=== PATIENT | male | born 1960 | race Caucasian/White ===

== ENCOUNTER → 2019-05-15 08:54 | Outpatient (CLI) | payer MEDICARE, SELFPAY ==
--- NOTE | 2019-05-15 10:25 | PM.TREADMILL ---
Cardiac Stress Test Report Referral & Results Date Patient Seen: 05/15/19 Time Patient Seen: 10:25 Requesting provider: Mojgan Yoon Indication: Dysrhythmia Rest ECG: Unremarkable Procedure Note: After both written and verbal informed consent patient had an IV started and was looked up to the treadmill monitoring system. Patient was exercised for 3 minutes according to standard [facility] protocol but only reached approximately 65% of his target heart rate. He was having increasing difficulty keeping up with the treadmill becoming increasingly fatigued etc. Therefore the [facility] protocol stress test was terminated and he was converted to a Lexiscan protocol. The treadmill was lowered to 1 mi an hour at 0 elevation and patient walked for 3 additional minutes. He received the Lexiscan material immediately followed by the Cardiolite tracer. There are no ST-T segment changes noted any point Blunted heart rate response as above likely secondary to ongoing beta-marianela therapy Occasional PAC identified including 3 and 4 beat runs of SVT Impression: Please see perfusion imaging report for details regarding possible ischemia Supraventricular dysrhythmia as above Please note: Actual ECG tracings can be found in the PACS system.
--- NOTE | 2019-05-19 11:42 | DI.NM.S_ITS ---
DATE OF SERVICE: 05/15/2019 PROCEDURE: Pharmacological perfusion study. INDICATIONS: Non-sustained ventricular tachycardia, premature ventricular contractions (PVCs), hypertension, persisted tobacco abuse, hyperlipidemia. RADIOPHARMACEUTICAL: 24.9 mCi technetium-99m Myoview IV was injected at stress and 24.9 mCi of technetium-99m Myoview IV was injected at rest. CARDIAC STRESS: The patient initially attempted exercise perfusion stress test, however, walked only for 3 minutes on treadmill and had only 65% of target heartrate; hence, got converted to Lexiscan. The patient received IV Lexiscan, as per standard protocol. He remained hemodynamically stable. Baseline EKG revealed sinus rhythm with almost QS complexes in V1 to V3. Stress EKG did not reveal any obvious inducible ischemic changes. There were 3 beats of nonsustained ventricular tachycardia. RAW DATA: There was increased subdiaphragmatic activity. GATED STUDY: Resting LV ejection fraction reported to be 42% and stress LV ejection fraction 58%. No significant wall motion abnormalities during stress. Resting end-diastolic volume 148 mL. TID ratio 0.99, which is within normal limits. Lung/heart ratio 0.46, which is abnormal. MYOCARDIAL PERFUSION: Stress supine, resting supine, and stress prone images were compared to each other. Stress supine images revealed cqokebbb-pj-gmumb- sized djmtzllv-la-lcwichnt decreased perfusion of inferior wall and inferior apex. Resting supine images revealed moderate-sized ujwkeeww-rv-wutyamph decreased perfusion of inferior wall and inferior apex, excluding distal inferior wall. On prone images, there was significant improvement. The patient remained to have minimally decreased perfusion of distal inferior wall. There is no obvious reversible ischemia. CONCLUSION: I will call this study likely a normal myocardial perfusion study with evidence of diaphragmatic tissue attention artifact which got much improved during prone images. The patient walked only 3 minutes for the treadmill, as per the report, and got only 65% of target heartrate; hence, converted to Lexiscan. Has 3 beats of nonsustained ventricular tachycardia which happened couple of times. No sustained ventricular tachycardia seen. Lung/heart ratio is abnormal. We will recommend to 2D Echo to make sure there is no diastolic dysfunction or significant valvular pathology. Clinical correlation is recommended. KennamillaDalton - ILSSA/giuliana/ts doc#: [id number]/job#: [id number] dd: 05/16/2019 16:21:00 dt: 05/17/2019 06:13:00 DICTATING MD/COPIES TO: Mojgan Yoon MD COPIES MNE: KENDRICK
== END ==
PROVIDERS: Visit Provider Physician Assistant
DX: I47.2 Ventricular tachycardia (principal); I49.3 Ventricular premature depolarization; I13.10 Hypertensive heart and chronic kidney disease without heart failure, with stage 1 through stage 4 chronic kidney disease, or unspecified chronic kidney disease; F17.200 Nicotine dependence, unspecified, uncomplicated; E78.5 Hyperlipidemia, unspecified
CPT/HCPCS: 78452; 93016; 93017; 93018; A9502; J2785

== ENCOUNTER → 2019-05-16 08:49 | Outpatient (CLI) | payer MEDICARE, SELFPAY ==
--- NOTE | 2019-05-16 | DI.ECHO.S_ITS ---
[place] +---------+ [facility] +---------+ : : [address] [place] [address] : : : : [id number] : : : : Phone: [phone]+ Echocardiogram Report + + :Name: HORACIO CLEMONS Study Date: 05/16/2019 Height: 73 in : :[facility] Exam Location: IS Weight: 265 lb : : Gender: Male BSA: 2.4 m2 : :: 1960 Age: 58 yrs BP: 118/78 mmHg: :Reason For Study: VTACH : : Performed By: Hernandez Vaughan : + + Interpretation Summary The left ventricle is normal in size. Left ventricular systolic function is borderline reduced. Left ventricular ejection fraction is estimated to be 50%. There are no focal wall motion abnormalities. Diastolic parameters suggest a relaxation abnormality of the left ventricle, consistent with probable normal filling pressures. The right ventricle is normal in size and function. The right ventricular systolic pressure is estimated to be at least 16 mmHg based on an estimated right atrial pressure of 3 mm Hg. Both atria are normal in size. There is no significant valvular heart disease. The ascending aorta is mildly enlarged. Procedure: A two-dimensional transthoracic echocardiogram with color flow and Doppler was performed. The study quality was technically good. Comparison is made with the echocardiogram of 01/04/2017. The patient was in normal sinus rhythm during the exam. The patient was bradycardic with a heart rate of 47-64 beats per minute. Left Ventricle: The left ventricle is normal in size. There is normal left ventricular wall thickness. Left ventricular systolic function is borderline reduced. Left ventricular ejection fraction is estimated to be 50%. There are no focal wall motion abnormalities. Diastolic parameters suggest a relaxation abnormality of the left ventricle, consistent with probable normal filling pressures. Right Ventricle: The right ventricle is normal in size and function. Atria: Both atria are normal in size. The interatrial septum is intact with no evidence for an atrial septal defect. Mitral Valve: The mitral valve is normal in structure and function. There is trace mitral regurgitation. Aortic Valve: The aortic valve is trileaflet. The aortic valve opens well. No aortic regurgitation is present. Tricuspid Valve: The tricuspid valve is normal in structure and function. There is trace tricuspid regurgitation. The right ventricular systolic pressure is estimated to be at least 16 mmHg based on an estimated right atrial pressure of 3 mm Hg. Pulmonic Valve: The pulmonic valve is normal in structure and function. There is trace pulmonic regurgitation. There is no significant valvular heart disease. Great Vessels: The aortic root is normal size. The ascending aorta is mildly enlarged. The aortic arch is at the upper limits of normal in size. The pulmonary artery is normal size. The IVC is of normal diameter and collapses greater than 50% with a sniff. This suggests a low right atrial pressure of 3 mm Hg. Pericardium/ Pleura There is no pericardial effusion. There is no pleural effusion. MMode/2D Measurements & Calculations LVIDd: 5.5 cm LVOT diam: 2.8 cm LVIDs: 4.2 cm Ao root diam: 3.5 cm FS: 23.8 % Aortic Jxn: 3.0 cm EPSS: 1.1 cm asc Aorta Diam: 3.6 cm IVSd: 0.86 cm Ao Arch Diam (Prox Trans): 3.1 cm LVPWd: 0.92 cm LV hudson. diameter/BSA (cm/m^2): 2.3 LV sys. diameter/BSA (cm/m^2): 1.7 LA dimension: 4.5 cm RA long axis: 5.8 cm LA A2 area: 22.2 cm2 RA area: 21.7 cm2 LA A4 area: 26.4 cm2 RA vol: 68.7 ml LA length (vol): 6.4 cm RA : 28.3 ml/m2 LA vol: 78.3 ml IVC diam: 1.9 cm LA vol index: 32.3 ml/m2 Doppler Measurements & Calculations Ao V2 max: 136.1 cm/sec LVOT Max Lamine: 82.9 cm/sec Ao V2 mean: 94.4 cm/sec LV V1 max P.7 mmHg Ao max P.4 mmHg LV V1 VTI: 19.2 cm Ao mean P.9 mmHg BABAR(I,D): 4.0 cm2 Ao V2 VTI: 29.3 cm BABAR(V,D): 3.7 cm2 sev ratio: 0.66 BABAR indexed to BSA (cm^2/m^2): 1.6 MV E max lamine: 61.1 cm/sec TR max lamine: 181.7 cm/sec MV A max lamine: 66.7 cm/sec TR max P.2 mmHg MV E/A: 0.92 PA V2 max: 68.8 cm/sec Med Peak E' Lamine: 7.0 cm/sec PA V2 mean: 49.3 cm/sec E/E' med: 8.7 PA mean P.0 mmHg Lat Peak E' Lamine: 9.4 cm/sec PA pr(Accel): 31.6 mmHg E/E' lat: 6.5 PA Accel Time: 0.11 sec E/e' average: 7.6 MV dec time: 0.11 sec SV(LVOT): 117.0 ml Reading Physician:02:43 PM
== END ==
PROVIDERS: Visit Provider Physician Assistant
DX: I47.2 Ventricular tachycardia (principal); I77.89 Other specified disorders of arteries and arterioles
CPT/HCPCS: 93306